=== PATIENT | male | born 1940 | race Caucasian/White ===

== ENCOUNTER 2025-01-23 08:26 | Day surgery (SDC) | payer MEDICARE, SELFPAY ==
[2025-01-23] VITALS (14 sets, daily range): BP systolic 110–181; BP diastolic 55–139; BMI 26.0
[2025-01-23] MEDS: LOW STRENGTH ASPIRIN 324 MG PO (09:10)
[2025-01-23] MEDS: NSS 283 ML IV (09:11)
[2025-01-23 10:41] LABS: ACT-LR - POC 363 Seconds (116-155)
[2025-01-23 10:48] LABS: ACT-LR - POC 219 Seconds (116-155)
[2025-01-23 10:58] LABS: ACT-LR - POC 252 Seconds (116-155)
[2025-01-23 11:08] LABS: ACT-LR - POC 261 Seconds (116-155)
--- NOTE | 2025-01-23 15:30 | ITS.CL.ANGIO ---
[facility] [employer] - Angioplasty
Angioplasty
Procedure Report:
LEFT HEART CATHETERIZATION
Date of Procedure: January 23, 2025
Procedures performed:
1: Coronary angiography
2: Left ventricular hemodynamic assessment
3: Abandoned percutaneous coronary intervention of the right coronary artery
Primary Care Physician: Dr. Sergio Hammer
Primary Price Changer: Dr. Jr Edmonds
INDICATION: The patient is an 85-year-old man with a past medical history of hypertension who is referred for increasing exertional chest tightness. He was first identified as having aortic stenosis in 2020 and this has been followed serially. His
most recent echo performed on November 19, 2024 showed normal LV systolic function with a visually estimated ejection fraction of 60 to 65%. The aortic valve is calcified with at least moderate aortic stenosis and trace aortic insufficiency. The
mean gradient across the valve was 32 mmHg with a valve area by the continuity equation of 1.1 cm� and a aortic valve dimensionless index of 0.26. He underwent exercise stress echo on January 01 which was abnormal. He walked 6 minutes achieving
3.1 METS and 76% of his age-predicted heart rate. He had a hypotensive response to exercise. Resting aortic valve gradients went from a peak/mean of 56/38 mmHg at rest to a peak gradient of 68/15 mmHg at peak exercise. There were no clear
exercise-induced wall motion abnormalities. The patient did develop chest discomfort that resolved with activity during the stress test. In light of these new findings he is referred for coronary angiography.
ACCESS: The patient was prepped and draped in usual sterile fashion. A 6 English sheath was placed in the right radial artery using the Seldinger over the wire technique. I was easily able to advance a J-wire up into the aortic root. Unfortunately
6 English and 5 English catheters would not pass with the resistance above the elbow in the mid bicep. I chose to abandon this and moved to a femoral approach. Using a micropuncture kit and ultrasound guidance a 6 English sheath was placed in the
right common femoral artery without difficulty.
HEMODYNAMIC FINDINGS (mmHg):
LV(s/d,EDP): 155/9, 21
Ao(s/d,m): 120/56, 78
Aortic valve mean gradient on pullback: 29 mmHg
Peak to peak aortic valve gradient: 32 mmHg
ANGIOGRAPHIC FINDINGS:
Single-plane Left Ventriculography in JARA Projection: Not done
Coronary Angiography:
Dominance: Right
Left Main: Medium caliber, widely patent.
Left Anterior Descending: The left anterior descending artery is a medium caliber artery that is heavily calcified in the proximal and mid portions. The LAD gives rise to a small caliber high first diagonal branch and a medium caliber second
diagonal branch. Despite the calcification there does not appear to be any clear flow-limiting disease in the LAD or the diagonal branches. All vessels have normal CEDRIC-3 flow distally.
Left Circumflex: The left circumflex is a medium caliber vessel that is also heavily calcified in the ostium and midportion. There is a smooth ostial 30 to 40% stenosis. Due to the calcification this may be over or underestimated angiographically.
The heavily calcified midportion of the vessel has no significant stenotic disease. The distal circumflex terminates in a large vessel that further trifurcates into 3 major vessels. The largest vessel has a smooth 50% stenosis followed by a
tandem 70 to 80% proximal stenosis and courses to the lateral apex with normal distal flow.
Right Coronary: The right coronary artery is a medium caliber dominant vessel that has heavy calcification within the AV groove. It is subtotally occluded distally beyond the acute margin with evidence of faint antegrade flow and then competitive
flow from left to right collaterals and what appears to be a small but technically dominant system.
Percutaneous Coronary Intervention (PCI): In light of his clinical presentation and the above angiographic findings, I elected to attempt a PCI of the right coronary artery. It appeared to be a chronic subtotal occlusion however given his recent
onset of symptoms I felt that it was possible that it was a recent occlusion and subtended a fairly large area of ischemia. The patient was pretreated with aspirin. Unfractionated heparin was given. A 6 English AL 0.75 guiding catheter was used to
engage the right coronary artery. Attempts to cross with a Hi-Torque floppy wire were unsuccessful. Next a Fielder XT was with great difficulty advanced across the subtotal occlusion and into the small distal system. A 6 English Guideliner was
utilized in anticipation for needing aggressive support to cross the subtotal occlusion with heavy calcification. Attempts to advance a [employer] quickcross microcatheter were unsuccessful. Next attempts with a Finecross microcatheter were
also unsuccessful. A Turnpike LP crossing catheter was then successfully used with great difficulty to traverse the heavily calcified area. The Fielder wire was removed and injection through the microcatheter proved intraluminal position. A long
Extra S'port wire was then advanced. Unfortunately I could not find a significantly sized vessel to achieve good wire purchase. At this point multiple attempts with 4 different low-profile balloons would not pass through this heavily calcified
area. Selective injection right at the site of preocclusion showed the distal circulation to also be diseased and relatively small in terms of caliber and extent of perfusion. At this point I elected to terminate the procedure and removed the
equipment. Follow-up angiography showed no incremental change and no evidence of dissection or injury. The patient tolerated the procedure without difficulty and remained hemodynamically stable during the entire procedure without symptoms.
FINAL RESULT: Abandoned attempt at right coronary artery intervention as described above.
Fluoroscopy Time (min): 26
Radiation Dose (mGy): 1368
DAP (Gy.cm2): 85
Closure device: 6 English Angio-Seal to the right common femoral artery. A TR band was applied for hemostasis at the right wrist.
Complications: None.
ASSESSMENT:
1: Unsuccessful/abandoned right coronary artery intervention as described above.
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
3: Moderate aortic valvular stenosis.
CONCLUSIONS and RECOMMENDATIONS:
1: Will initiate medical therapy for coronary artery disease which was unrecognized until today. Start amlodipine 5 mg daily along with moderate dose high intensity statin therapy and aspirin.
2: Would consider PCI of the distal circumflex if he continues to have symptoms despite maximal medical therapy.
3: Continue serial clinical and echocardiographic monitoring of aortic stenosis.
Adry Gross M.D.
Copy to: Dr. Sergio Hammer
[2025-01-24 09:35] LABS: ACT-LR - POC 282 Seconds (116-155)
== END 2025-01-23 15:40 | disposition home or self-care (01) ==
LOC: CATH 08:26
PROVIDERS: ATTENDING PHYSICIAN Internal Medicine Interventional Cardiology; PRIMARYCARE PHYSICIAN Family Medicine; REFERRING PHYSICIAN Internal Medicine Cardiovascular Disease
DX: I25.10 Atherosclerotic heart disease of native coronary artery without angina pectoris (principal); I35.2 Nonrheumatic aortic (valve) stenosis with insufficiency; I10 Essential (primary) hypertension; I44.4 Left anterior fascicular block; K21.9 Gastro-esophageal reflux disease without esophagitis; Z87.891 Personal history of nicotine dependence; Z79.82 Long term (current) use of aspirin
CPT/HCPCS: C1894; C1769 ×2; C1725; 85347; 92920; 93458; C1760